=== PATIENT | female | born 1985 | race Caucasian/White ===

== ENCOUNTER 2017-08-01 22:01 | Observation (INO) | payer OTHER ==
[2017-08-02 06:02] VITALS: BP 111/66; PULSE 70; O2SAT 99
--- NOTE | 2017-08-02 08:24 | PCM.SSS ---
History of Present Illness - Chief Complaint Chief Complaint: OB CHECK History of Present Illness: is a 32 year old at 25 wks EGA female who presented to OB last night with complaints of painless vaginal bleeding. She denies intercourse , strenuous activity or any inciting event prior to the bleeding. She has had no vaginal bleeding overnight, no abdominal pain, no nausea, vomiting, diarrhea , no dysuria, no other complaints at this time. - Review of Systems Constitutional: No Fever, No Chills Respiratory: No Cough, No Short Of Breath Cardiac: No Chest Pain, No Edema, No Syncope Abdominal/Gastrointestinal: No Abdominal Pain, No Nausea, No Vomiting, No Diarrhea Genitourinary Symptoms: , Vaginal Bleeding, No Dysuria, No Frequency, No Hematuria, No Vaginal Discharge, No Vaginal Itching Skin: No Rash All Other Systems: Reviewed and Negative Medications & Allergies Home Medications: Home Medication List Vits W-Ca,Fe,FA(<1Mg) [] 1 each PO DAILY 05/04/12 [History Confirmed 12/18/14] Sertraline HCl DAILY 08/01/17 [History] Allergies/Adverse Reactions: Allergies Allergy/AdvReac Type Severity Reaction Status Date / Time amoxicillin Allergy Rash Verified 08/01/17 22:43 - Past Medical History Past Medical History: No Neurological History: No Pertinent History ENT History: No Pertinent History Cardiac History: No Pertinent History Respiratory History: No Pertinent History Endocrine Medical History: No Pertinent History Musculoskelatal History: No Pertinent History GI Medical History: No Pertinent History History: No Pertinent History Pyscho-Social History: Anxiety Reproductive Disorders: No Pertinent History - Female History Expected Date of Delivery: 11/12/17 - Past Surgical History Past Surgical History: Yes Neuro Surgical History: No Pertinent History Cardiac History: No Pertinent History Respiratory Surgery: No Pertinent History GI Surgical History: No Pertinent History Genitourinary Surgical Hx: No Pertinent History Musculskeletal Surgical Hx: No Pertinent History Female Surgical History: No Pertinent History Other Surgical History: IUD removed in 2011 - Social History Smoking Status: Never smoker Exposure to second hand smoke: No Alcohol: None Drug Use: none - Physical Exam Vital Signs: Vital Signs - 24 hr Temp Pulse Resp BP BP Pulse Ox 08/02/17 06:01 97.3 F 70 18 111/66 99 08/01/17 22:01 97.7 F 85 18 120/74 120/74 97 General Appearance: no apparent distress, alert Eye Exam: PERRL/EOMI, eyes nml inspection Respiratory Exam: normal breath sounds, lungs clear, No respiratory distress Cardiovascular Exam: regular rate/rhythm, normal heart sounds, normal peripheral pulses Gastrointestinal/Abdomen Exam: soft, normal bowel sounds, No tenderness, No mass Extremity Exam: normal inspection, normal range of motion, pelvis stable Skin Exam: normal color, warm, dry, No rash Results - Labs Lab/Micro Results: Lab Results-Last 24 Hours 08/01/17 Range/Units 22:30 Urine Opiates Level NEG. (NEGATIVE) Ur Methadone NEG. (NEGATIVE) Urine Barbiturates NEG. (NEGATIVE) Ur Phencyclidine (PCP) NEG. (NEGATIVE) Urine Amphetamine NEG. (NEGATIVE) U Benzodiazepine Level NEG. (NEGATIVE) Urine Cocaine NEG. (NEGATIVE) Urine Marijuana (THC) NEG. (NEGATIVE) - Radiology Impressions Radiology Exams & Impressions: Radiology Procedures Category Date Time Status OB >14 WKS 1st GESTATION [US] Urgent Exams 08/02/17 Taken Assessment/Plan (1) Third trimester bleeding Current Visit: Yes Status: Acute Assessment & Plan: u/s shows normal DARIEL 12.4, plactenta posterior, midline and no previa. nothing abnormal, heart tracing reassuring. will d/c to home and have patient f/u in office in 1 week. advised to return or call with any further bleeding or new problems or concerns. Code(s): O46.93 - ANTEPARTUM HEMORRHAGE, UNSPECIFIED, THIRD TRIMESTER Hospital Summary - Vitals & Intake/Output Vital Signs: Vital Signs Temperature 97.3 F 08/02/17 06:01 Pulse Rate 70 08/02/17 06:01 Respiratory Rate 18 08/02/17 06:01 Blood Pressure 111/66 08/02/17 06:01 O2 Sat by Pulse Oximetry 99 08/02/17 06:01 Intake & Output: Intake & Output 07/30/17 07/31/17 08/01/17 08/02/17 11:59 11:59 11:59 11:59 Weight 99.79 kg - Lab Lab Results-Last 24 Hrs: Lab Results-Last 24 Hours 08/01/17 Range/Units 22:30 Urine Opiates Level NEG. (NEGATIVE) Ur Methadone NEG. (NEGATIVE) Urine Barbiturates NEG. (NEGATIVE) Ur Phencyclidine (PCP) NEG. (NEGATIVE) Urine Amphetamine NEG. (NEGATIVE) U Benzodiazepine Level NEG. (NEGATIVE) Urine Cocaine NEG. (NEGATIVE) Urine Marijuana (THC) NEG. (NEGATIVE) - Radiology Exams Ordered Rad Exams-Entire Visit: Radiology Procedures Category Date Time Status OB >14 WKS 1st GESTATION [US] Urgent Exams 08/02/17 Taken - Discharge Disposition: Home, Self-Care Condition: Stable Prescriptions: No Action Vits W-Ca,Fe,FA(<1Mg) [] 1 each PO DAILY Sertraline HCl DAILY Additional Instructions: pelvic rest for the next week, no vigorous or strenuous activity. return to OB for any further vaginal bleeding or call the office if it occurs during normal business hours. Follow up with: CADY HOLLIS MD [Primary Care Provider] - 08/09/17 1:30 pm
--- NOTE | 2017-08-02 08:45 | XRAY ---
Indication: Vaginal bleeding. 2-dimensional OB ultrasound performed. Comparison: June 14, 2017. Again there is a single viable intrauterine in cephalic presentation. Normal four-chamber heart with heart rate 132 bpm. Normal three-vessel cord and cord insertion. Visualized head, spine, stomach, kidneys, and bladder appear unremarkable. Placenta is posterior without abruption/previa. BPD measures 6.31 cm corresponding to 25 weeks 4 days. HC measures 23.37 cm corresponding to 25 weeks 3 days. AC measures 20.88 cm corresponding to 25 weeks 3 days. FL measures 4.92 cm corresponding to 26 weeks 4 days. DARIEL is 12.4 cm. Impression: Again single viable intrauterine with mean gestational age 25 weeks 5 days. Normal progression of . No new/acute findings.
== END 2017-08-02 08:33 | disposition home or self-care (01) ==
LOC: OB 22:01
PROVIDERS: ADMIT Family Medicine; ATTEND Family Medicine
DX: Z34.83 Encounter for supervision of other normal pregnancy, third trimester (principal)
CPT/HCPCS: 76805; 80307; G0378

== ENCOUNTER 2017-11-08 01:49 | Inpatient (IN) | payer OTHER ==
[2017-11-08] MEDS ORDERED: Lactated Ringers 1,000 ML IV ONE (01:52)
[2017-11-08] MEDS ORDERED: Zofran 4 MG/2 ML VIAL IV PRN (02:37)
[2017-11-08] MEDS ORDERED: Adacel Vial IM ONE (02:41)
[2017-11-08] MEDS ORDERED: Ambien 10 MG PO PRN (02:41)
[2017-11-08] MEDS ORDERED: Anucort-HC SUPPOSITORY PR PRN (02:41)
[2017-11-08] MEDS ORDERED: Mylicon 80MG PO PRN (02:41)
[2017-11-08] MEDS ORDERED: Dulcolax 10 MG SUPP PR PRN (02:41)
[2017-11-08] MEDS ORDERED: Dermoplast Spray TP PRN (02:41)
[2017-11-08] MEDS ORDERED: TUCKS TP PRN (02:41)
[2017-11-08] MEDS ORDERED: LANSINOH 40 GM TOP PRN (02:41)
[2017-11-08] MEDS ORDERED: CORTISONE 1% CREAM TP PRN (02:41)
[2017-11-08] MEDS ORDERED: NORCO 5/325 MG PO PRN (02:41)
[2017-11-08] MEDS: MOTRIN 400 MG PO PRN ×3 (02:59→18:44)
[2017-11-08] MEDS ORDERED: PITOCIN 30 UNITS/ LR 500 ML 500 ML IV SCH (03:00)
[2017-11-08] MEDS ORDERED: Lactated Ringers 1,000 ML IV SCH (03:00)
[2017-11-08 03:14] LABS: BASOPHIL % 0.1 % (0.0-0.4); Basophil (Absolute #) 0.01 (0-0.4); Eosinophil % 0.5 % (0.00-5.0); Eosinophil (Absolute #) 0.04 (0-0.5); Granulocyte Absolute (ANC) 5.82 (1.4-6.9); Granulocytes % 76.3 % (36.0-66.0); Hematocrit 36.1 % (35-47); Hemoglobin 11.4 gm/dl (12.0-16.0); Lymphocyte (Absolute #) 1.27 (1.0-4.6); Lymphocytes % 16.6 % (24.0-44.0); Mean Cell Volume 92.1 fl (78-100); Mean Corpuscular Hgb Concent. 31.6 g/dl (32-36); Mean Platelet Volume 10.7 fl (6-9.5); Monocytes % 6.5 % (0.0-12.0); Platelet Count 235 K/mm3 (150-450); Red Blood Count 3.92 M/mm3 (4.1-5.4); Red Cell Distribution Width 13.5 % (11.5-14.0); White Blood Count 7.6 K/mm3 (4.0-10.5)
[2017-11-08 04:04] LABS: Amphetamine,Urine NEG. (NEGATIVE); Barbiturate,Urine NEG. (NEGATIVE); Benzodiazepine,Urine NEG. (NEGATIVE); Cocaine,Urine NEG. (NEGATIVE); Methadone,Urine NEG. (NEGATIVE); Opiate,Urine NEG. (NEGATIVE); PCP,Urine NEG. (NEGATIVE); THC,Urine NEG. (NEGATIVE)
[2017-11-08] MEDS: Colace 100 MG PO SCH ×2 (09:51→22:20)
[2017-11-08] MEDS: FERREX 150 PO SCH (09:51)
[2017-11-08] MEDS: TYLENOL EXTRA STRENGTH 500 MG PO PRN ×2 (12:23→22:20)
[2017-11-09] MEDS: MOTRIN 400 MG PO PRN ×3 (01:48→20:06)
[2017-11-09 05:54] LABS: BASOPHIL % 0.2 % (0.0-0.4); Basophil (Absolute #) 0.01 (0-0.4); Eosinophil % 1.5 % (0.00-5.0); Eosinophil (Absolute #) 0.09 (0-0.5); Granulocyte Absolute (ANC) 2.91 (1.4-6.9); Granulocytes % 50.1 % (36.0-66.0); Hematocrit 32.9 % (35-47); Hemoglobin 10.3 gm/dl (12.0-16.0); Lymphocyte (Absolute #) 2.24 (1.0-4.6); Lymphocytes % 38.6 % (24.0-44.0); Mean Cell Volume 93.2 fl (78-100); Mean Corpuscular Hgb Concent. 31.3 g/dl (32-36); Mean Platelet Volume 10.7 fl (6-9.5); Monocyte (Absolute #) 0.56 (0.0-1.3); Monocytes % 9.6 % (0.0-12.0); Platelet Count 223 K/mm3 (150-450); Red Blood Count 3.53 M/mm3 (4.1-5.4); Red Cell Distribution Width 13.5 % (11.5-14.0); White Blood Count 5.8 K/mm3 (4.0-10.5)
[2017-11-09 06:00] LABS: Mean Corpuscular Hemoglobin 29.1 pg (26-32)
[2017-11-09] MEDS: TYLENOL EXTRA STRENGTH 500 MG PO PRN (12:49)
[2017-11-09] MEDS: Colace 100 MG PO SCH ×2 (12:50→22:17)
[2017-11-09] MEDS: FERREX 150 PO SCH (12:50)
[2017-11-10] MEDS: MOTRIN 400 MG PO PRN (05:25)
--- NOTE | 2017-11-10 08:53 | PCM.DS ---
Discharge Summary Date of Admission: 11/08/17 01:49 Admitting Physician: CADY HOLLIS Primary Care Provider: CADY HOLLIS Allergies Allergies amoxicillin Allergy (Verified 11/08/17 05:13) [facility] Hospital Summary - Hospital Course Hospital Course: 32yo arrived and delivered a female precipitously with no complications. she is her , mild lochia, taking regular po and has no complaints. - Vitals & Intake/Output Vital Signs: Vital Signs Temperature 97.7 F 11/10/17 02:00 Pulse Rate 68 11/10/17 02:00 Respiratory Rate 18 11/10/17 02:00 Blood Pressure 142/77 11/10/17 02:00 O2 Sat by Pulse Oximetry Intake & Output: Intake & Output 11/07/17 11/08/17 11/09/17 11/10/17 11:59 11:59 11:59 11:59 Intake Total 1550 1240 Balance 1550 1240 Weight 108.862 kg - Lab Result Diagrams: 11/09/17 05:45 Discharge Exam General Appearance: no apparent distress, alert Respiratory Exam: normal breath sounds, lungs clear, No respiratory distress Cardiovascular Exam: regular rate/rhythm, normal heart sounds Gastrointestinal/Abdomen Exam: soft, No tenderness, No mass Extremity Exam: normal inspection, normal range of motion Final Diagnosis/Problem List - Final Discharge Diagnosis/Problem (1) Vaginal delivery Current Visit: No Status: Acute (2) () Current Visit: Yes Status: Acute - Discharge Disposition: Home, Self-Care Condition: Stable Prescriptions: New Breast Pump 1 each UD #1 each Ibuprofen 600 mg PO TID PRN #30 tablet Continue Vits W-Ca,Fe,FA(<1Mg) [] 1 each PO DAILY Sertraline HCl 100 tab PO DAILY Follow up with: CADY HOLLIS MD [Primary Care Provider] - 1 Week
[2017-11-10 09:26] VITALS: BP 126/88; PULSE 86
== END 2017-11-10 10:20 | disposition home or self-care (01) | DRG 775 ==
LOC: OB 01:49 → OBSVTOIN 01:49 → MED SURG 11-09 21:33
PROVIDERS: ADMIT Family Medicine; ATTEND Family Medicine
PROC: 10E0XZZ Delivery of Products of Conception, External Approach (ICD-10-PCS; principal; 2017-11-08)
DX: O80 Encounter for full-term uncomplicated delivery (principal); Z3A.39 39 weeks gestation of pregnancy; Z37.0 Single live birth
CPT/HCPCS: 36415; 80307; 85025; 90715; G0378; J2590; A9270-GY

== ENCOUNTER 2024-05-29 11:59 | Emergency (ER) | payer OTHER ==
--- NOTE | 2024-05-29 12:03 | ERPHSYRPT ---
- History of Present Illness Time Seen by Provider: 05/29/24 12:03 Source: patient Exam Limitations: no limitations Physician History: This is a 39-year-old white female patient of Dr. Hollis who was brought into the emergency department by her spouse because of rapid heart rate and dizziness. 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 Patient denies illicit drug use. Patient denies methamphetamine/amphetamine based medications or illicit drug use. Patient has a history of hypothyroidism and anxiety. Patient herself, has no documented history of coronary artery disease. Patient does feel mild central, substernal pressure without radiation. Patient is not short of breath. She has not had any nausea vomiting or diarrhea symptoms. Timing/Duration: today, hour(s) (1 hour prior to arrival) Severity: moderate Character of Deficits: none Deficits: no difficulties Baseline/Normal Cognition: alert oriented x 3 Current Cognition: alert oriented x 3 Baseline Gait: walks w/o assistance Associated Symptoms: other (Dizziness and rapid palpitations) Allergies/Adverse Reactions: amoxicillin Allergy (Verified 05/29/24 12:07) Rash Home Medications: Sertraline HCl 100 tab PO DAILY 08/01/17 [History] Levothyroxine Sodium [Levothyroxine] 50 mcg PO DAILY 05/29/24 [History] Travel Risk - International Travel Have you traveled outside of the country in past 3 weeks: No - Emerging Infectious Disease Are you exhibiting symptoms associated with any current EIDs: No - Review of Systems Constitutional: No Symptoms Eyes: No Symptoms Ears, Nose, & Throat: No Symptoms Respiratory: No Symptoms Cardiac: Palpitations, Other (Mild central substernal nonradiating chest pressure) Abdominal/Gastrointestinal: No Symptoms Genitourinary Symptoms: No Symptoms Musculoskeletal: No Symptoms Skin: No Symptoms Neurological: Dizziness Psychological: No Symptoms Endocrine: No Symptoms Hematologic/Lymphatic: No Symptoms Immunological/Allergic: No Symptoms All Other Systems: Reviewed and Negative - Past Medical History Pertinent Past Medical History: No Neurological History: No Pertinent History ENT History: No Pertinent History Cardiac History: No Pertinent History Respiratory History: No Pertinent History Endocrine Medical History: No Pertinent History Musculoskeletal History: No Pertinent History GI Medical History: No Pertinent History History: No Pertinent History Psycho-Social History: Anxiety Female Reproductive Disorders: No Pertinent History - Past Surgical History Past Surgical History: Yes Neuro Surgical History: No Pertinent History Cardiac: No Pertinent History Respiratory: No Pertinent History Gastrointestinal: No Pertinent History Genitourinary: No Pertinent History Musculoskeletal: No Pertinent History Female Surgical History: No Pertinent History Other Surgical History: IUD removed in 2011 - Social History Smoking Status: Never smoker Exposure to second hand smoke: No Drug Use: none - Nursing Vital Signs Nursing Vital Signs: Initial Vital Signs Temperature 97.0 F 05/29/24 12:12 Pulse Rate 198 H 05/29/24 12:12 Respiratory Rate 20 05/29/24 12:12 Blood Pressure 162/99 05/29/24 12:12 O2 Sat by Pulse Oximetry 100 05/29/24 12:12 Pain Scale Pain Intensity 0 - Belkys Coma Scale Best Eye Response (Ransom): (4) open spontaneously Best Verbal Response (Belkys): (5) oriented Best Motor Response (Belkys): (6) obeys commands Belkys Total: 15 - Physical Exam General Appearance: mild distress, alert, anxiety, obese Eye Exam: bilateral eye: normal inspection, PERRL, EOMI Ears, Nose, Throat Exam: normal ENT inspection, pharynx normal, moist mucous membranes Neck Exam: normal inspection, non-tender, supple, full range of motion Respiratory: normal breath sounds, lungs clear, airway intact, No chest tenderness, No respiratory distress Cardiovascular: tachycardia Gastrointestinal: soft, normal bowel sounds, No tenderness Pelvic Exam: not done Rectal Exam: not done Back Exam: normal inspection, normal range of motion, No CVA tenderness, No vertebral tenderness Extremity Exam: normal inspection, normal range of motion, pelvis stable Mental Status: alert, 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 QTc 464. No comparison twelve-lead EKG) Ordered Tests: Active Orders 24 hr Category Date Time Status [employer] Employee STAT Care 05/29/24 12:26 Active EKG-ER Only STAT Care 05/29/24 12:25 Active IV Insertion STAT Care 05/29/24 12:25 Active Pulse Oximetry (ED) STAT Care 05/29/24 12:25 Active Re-Check Vital Signs STAT Care 05/29/24 12:25 Active CBC W DIFF Stat Lab 05/29/24 12:35 Completed CMP Stat Lab 05/29/24 12:35 Completed D-DIMER QUANTITATIVE Stat Lab 05/29/24 12:35 Completed MAGNESIUM Stat Lab 05/29/24 12:35 Completed NT PRO BNPII Stat Lab 05/29/24 12:35 Completed PROTIME WITH INR Stat Lab 05/29/24 12:35 Completed TROPONIN Q4H Lab 05/29/24 12:35 Completed TROPONIN Q4H Lab 05/29/24 16:30 Ordered TROPONIN Q4H Lab 05/29/24 20:30 Ordered TSH, 3RD Generation Stat Lab 05/29/24 12:35 Completed UA W/RFX UR CULTURE Stat Lab 05/29/24 12:54 Completed Urine Triage Profile Stat Lab 05/29/24 12:54 Completed Holter Monitor ONCE RT 05/29/24 13:37 Active Medication Summary Discontinued Medications Generic Name Dose Route Start Last Admin Trade Name Freq PRN Reason Stop Dose Admin Adenosine Confirm 05/29/24 12:09 Adenosine 6 Mg/2 Ml Vial Administered 05/29/24 12:10 Dose 18 mg IV .STK-MED ONE Adenosine 6 mg 05/29/24 12:27 05/29/24 12:42 Adenosine 6 Mg/2 Ml Vial IV 05/29/24 12:28 Not Given STAT ONE Lorazepam 1 mg 05/29/24 12:29 05/29/24 12:38 Lorazepam 2 Mg/1 Ml 2 Mg Vial IV 05/29/24 12:30 1 mg STAT ONE Administration Lorazepam Confirm 05/29/24 12:35 Lorazepam 2 Mg/1 Ml 2 Mg Vial Administered 05/29/24 12:36 Dose 2 mg .ROUTE .STK-MED ONE Lab/Rad Data: Laboratory Result Diagrams 05/29/24 12:35 05/29/24 12:35 Laboratory Results 05/29/24 05/29/24 05/29/24 Range/Units 12:54 12:54 12:35 WBC (3.98-10.04) x10^3/uL RBC (3.93-5.22) x10^6/uL Hgb (11.2-15.7) g/dL Hct (34.1-44.9) % MCV (79.4-94.8) fL MCH (25.6-32.2) pg MCHC (32.2-35.5) g/dL RDW (11.7-14.4) % Plt Count (182-369) x10^3/uL MPV (9.4-12.3) fL Gran % (34.0-71.1) % Immature Gran % (Auto) (0.001-0.429) % Nucleat RBC Rel Count (0.00-0.2) % Eos # (Auto) (0.04-0.36) x10^3/uL Immature Gran # (Auto) (0.001-0.031) x10^3u/L Absolute Lymphs (auto) (1.18-3.74) x10^3/uL Absolute Monos (auto) (0.24-0.86) x10^3/uL Absolute Nucleated RBC (0.00-0.012) x10^3u/L Lymphocytes % (19.3-51.7) % Monocytes % (4.7-12.5) % Eosinophils % (0.7-5.8) % Basophils % (0.1-1.2) % Absolute Granulocytes (1.56-6.13) x10^3/uL Basophils # (0.01-0.08) x10^3/uL PT (9.4-12.5) SECONDS INR (0.8-3.0) D-Dimer (0.0-0.50) mg/L Sodium (135-145) mmol/L Potassium (3.5-5.1) mmol/L Chloride (98-107) mmol/L Carbon Dioxide (22-30) mmol/L Anion Gap (5-15) MEQ/L BUN (7-17) mg/dL Creatinine (0.52-1.04) mg/dL Estimated GFR ML/MIN Glucose (74-106) mg/dL Calcium (8.4-10.2) mg/dL Magnesium (1.6-2.3) mg/dL Total Bilirubin (0.2-1.3) mg/dL AST (14-36) U/L ALT (0-35) U/L Alkaline Phosphatase (38-126) U/L Troponin I < 0.012 (0.000-0.033) ng/mL NT-Pro-B Natriuret Pep < 20.0 (<300) pg/mL Serum Total Protein (6.3-8.2) g/dL Albumin (3.5-5.0) g/dL Free T4 (0.78-2.19) ng/dL TSH 3rd Generation (0.470-4.680) mIU/L Urine Color Yellow (Yellow) Urine Appearance Clear (Clear) Urine pH 7.5 (4.6-8.0) Ur Specific Lucas <=1.005 (1.005-1.030) Urine Protein Trace A (Negative) Urine Glucose (UA) Negative (Negative) mg/dL Urine Ketones Negative (Negative) Urine Blood Negative (Negative) Urine Nitrite Negative (Negative) Urine Bilirubin Negative (Negative) Urine Urobilinogen 0.2 (0.2) mg/dL Ur Leukocyte Esterase Negative (Negative) U Hyaline Cast (Auto) NONE SEEN (0-2) /LPF Urine Microscopic RBC 0-2 (0-5) /HPF Urine Microscopic WBC 0-2 (0-5) /HPF Ur Epithelial Cells Rare (None Seen) /HPF Urine Bacteria None Seen (None Seen) /HPF Urine Culture Reflexed NO (NO) Urine Opiates Level NEGATIVE (NEGATIVE) Ur Methadone NEGATIVE (NEGATIVE) Urine Barbiturates NEGATIVE (NEGATIVE) Ur Phencyclidine (PCP) NEGATIVE (NEGATIVE) Urine Amphetamine NEGATIVE (NEGATIVE) U Benzodiazepine Level NEGATIVE (NEGATIVE) Urine Cocaine NEGATIVE (NEGATIVE) Urine Marijuana (THC) NEGATIVE (NEGATIVE) 05/29/24 05/29/24 05/29/24 Range/Units 12:35 12:35 12:35 WBC (3.98-10.04) x10^3/uL RBC (3.93-5.22) x10^6/uL Hgb (11.2-15.7) g/dL Hct (34.1-44.9) % MCV (79.4-94.8) fL MCH (25.6-32.2) pg MCHC (32.2-35.5) g/dL RDW (11.7-14.4) % Plt Count (182-369) x10^3/uL MPV (9.4-12.3) fL Gran % (34.0-71.1) % Immature Gran % (Auto) (0.001-0.429) % Nucleat RBC Rel Count (0.00-0.2) % Eos # (Auto) (0.04-0.36) x10^3/uL Immature Gran # (Auto) (0.001-0.031) x10^3u/L Absolute Lymphs (auto) (1.18-3.74) x10^3/uL Absolute Monos (auto) (0.24-0.86) x10^3/uL Absolute Nucleated RBC (0.00-0.012) x10^3u/L Lymphocytes % (19.3-51.7) % Monocytes % (4.7-12.5) % Eosinophils % (0.7-5.8) % Basophils % (0.1-1.2) % Absolute Granulocytes (1.56-6.13) x10^3/uL Basophils # (0.01-0.08) x10^3/uL PT 10.9 (9.4-12.5) SECONDS INR 1.00 (0.8-3.0) D-Dimer < 0.19 (0.0-0.50) mg/L Sodium 138 (135-145) mmol/L Potassium 4.2 (3.5-5.1) mmol/L Chloride 105 (98-107) mmol/L Carbon Dioxide 21 L (22-30) mmol/L Anion Gap 15.5 H (5-15) MEQ/L BUN 11 (7-17) mg/dL Creatinine 0.75 (0.52-1.04) mg/dL Estimated GFR 103.2 ML/MIN Glucose 108 H (74-106) mg/dL Calcium 8.9 (8.4-10.2) mg/dL Magnesium 1.9 (1.6-2.3) mg/dL Total Bilirubin 0.70 (0.2-1.3) mg/dL AST 25 (14-36) U/L ALT 25 (0-35) U/L Alkaline Phosphatase 77 (38-126) U/L Troponin I (0.000-0.033) ng/mL NT-Pro-B Natriuret Pep (<300) pg/mL Serum Total Protein 7.7 (6.3-8.2) g/dL Albumin 4.4 (3.5-5.0) g/dL Free T4 1.00 (0.78-2.19) ng/dL TSH 3rd Generation 5.648 H (0.470-4.680) mIU/L Urine Color (Yellow) Urine Appearance (Clear) Urine pH (4.6-8.0) Ur Specific Lucas (1.005-1.030) Urine Protein (Negative) Urine Glucose (UA) (Negative) mg/dL Urine Ketones (Negative) Urine Blood (Negative) Urine Nitrite (Negative) Urine Bilirubin (Negative) Urine Urobilinogen (0.2) mg/dL Ur Leukocyte Esterase (Negative) U Hyaline Cast (Auto) (0-2) /LPF Urine Microscopic RBC (0-5) /HPF Urine Microscopic WBC (0-5) /HPF Ur Epithelial Cells (None Seen) /HPF Urine Bacteria (None Seen) /HPF Urine Culture Reflexed (NO) Urine Opiates Level (NEGATIVE) Ur Methadone (NEGATIVE) Urine Barbiturates (NEGATIVE) Ur Phencyclidine (PCP) (NEGATIVE) Urine Amphetamine (NEGATIVE) U Benzodiazepine Level (NEGATIVE) Urine Cocaine (NEGATIVE) Urine Marijuana (THC) (NEGATIVE) 05/29/24 Range/Units 12:35 WBC 5.2 (3.98-10.04) x10^3/uL RBC 4.48 (3.93-5.22) x10^6/uL Hgb 13.8 (11.2-15.7) g/dL Hct 41.3 (34.1-44.9) % MCV 92.2 (79.4-94.8) fL MCH 30.8 (25.6-32.2) pg MCHC 33.4 (32.2-35.5) g/dL RDW 12.7 (11.7-14.4) % Plt Count 231 (182-369) x10^3/uL MPV 9.5 (9.4-12.3) fL Gran % 52.6 (34.0-71.1) % Immature Gran % (Auto) 0.4 (0.001-0.429) % Nucleat RBC Rel Count 0.0 (0.00-0.2) % Eos # (Auto) 0.09 (0.04-0.36) x10^3/uL Immature Gran # (Auto) 0.02 (0.001-0.031) x10^3u/L Absolute Lymphs (auto) 2.00 (1.18-3.74) x10^3/uL Absolute Monos (auto) 0.34 (0.24-0.86) x10^3/uL Absolute Nucleated RBC 0.00 (0.00-0.012) x10^3u/L Lymphocytes % 38.2 (19.3-51.7) % Monocytes % 6.5 (4.7-12.5) % Eosinophils % 1.7 (0.7-5.8) % Basophils % 0.6 (0.1-1.2) % Absolute Granulocytes 2.75 (1.56-6.13) x10^3/uL Basophils # 0.03 (0.01-0.08) x10^3/uL PT (9.4-12.5) SECONDS INR (0.8-3.0) D-Dimer (0.0-0.50) mg/L Sodium (135-145) mmol/L Potassium (3.5-5.1) mmol/L Chloride (98-107) mmol/L Carbon Dioxide (22-30) mmol/L Anion Gap (5-15) MEQ/L BUN (7-17) mg/dL Creatinine (0.52-1.04) mg/dL Estimated GFR ML/MIN Glucose (74-106) mg/dL Calcium (8.4-10.2) mg/dL Magnesium (1.6-2.3) mg/dL Total Bilirubin (0.2-1.3) mg/dL AST (14-36) U/L ALT (0-35) U/L Alkaline Phosphatase (38-126) U/L Troponin I (0.000-0.033) ng/mL NT-Pro-B Natriuret Pep (<300) pg/mL Serum Total Protein (6.3-8.2) g/dL Albumin (3.5-5.0) g/dL Free T4 (0.78-2.19) ng/dL TSH 3rd Generation (0.470-4.680) mIU/L Urine Color (Yellow) Urine Appearance (Clear) Urine pH (4.6-8.0) Ur Specific Lucas (1.005-1.030) Urine Protein (Negative) Urine Glucose (UA) (Negative) mg/dL Urine Ketones (Negative) Urine Blood (Negative) Urine Nitrite (Negative) Urine Bilirubin (Negative) Urine Urobilinogen (0.2) mg/dL Ur Leukocyte Esterase (Negative) U Hyaline Cast (Auto) (0-2) /LPF Urine Microscopic RBC (0-5) /HPF Urine Microscopic WBC (0-5) /HPF Ur Epithelial Cells (None Seen) /HPF Urine Bacteria (None Seen) /HPF Urine Culture Reflexed (NO) Urine Opiates Level (NEGATIVE) Ur Methadone (NEGATIVE) Urine Barbiturates (NEGATIVE) Ur Phencyclidine (PCP) (NEGATIVE) Urine Amphetamine (NEGATIVE) U Benzodiazepine Level (NEGATIVE) Urine Cocaine (NEGATIVE) Urine Marijuana (THC) (NEGATIVE) - Progress Progress: improved, re-examined Progress Note: 05/29/24 12:31 My medical decision making and the assignment of moderate to high complexity of this patient's medical issue today is based on review of the patient's past medical history, review of the patient's medication list, reviewed patient drug allergy list, history present illness and physical findings on examination. The workup in this patient includes twelve-lead EKG, intravenous line placement, CBC, CMP, magnesium level, troponin level, urinalysis, urine drug screen, free T4 level, TSH level. Patient will be given adenosine 6 mg intravenously. If this medication amount is ineffective we will increase to 12 mg intravenously. Differential diagnosis includes but not limited to SVT, electrolyte abnormality, arrhythmia abnormality, myocardial infarction, pulmonary embolus, congestive heart failure, 05/29/24 12:41 I obtained a repeat twelve-lead EKG on 05/29/2024 at 1220 after patient had received 6 mg intravenously adenosine followed by 12 mg intravenous adenosine. I interpreted this twelve-lead EKG. Shows a heart rate of 129 patient is now sinus tachycardia. The QTc is 445. 05/29/24 13:40 I interpreted the patient's laboratory data results. Based on the patient's laboratory data results, there are no acute emergent medical issues. We will discharge the patient home and make arranges for close follow-up with her primary care provider. Will also place a Holter monitor on her as well. Counseled pt/family regarding: lab results, diagnosis, need for follow-up Medical Desision Making - Independent Historian Additional History obtained from: Spouse - Diagnostic Testing Diagnostic test were ordered, analyzed, and reviewed by me: Yes - Risk of complications Minimal Risk: Minimal risk of morbidity - Departure Departure Disposition: Home Clinical Impression: SVT (supraventricular tachycardia) Condition: Stable Critical Care Time: Yes Critical Care Time(excluding separately billable procedures): Critical 30-74 mins (40 minutes) Referrals: CADY HOLLIS MD [Primary Care Provider] - Follow up/PCP as directed
[2024-05-29] MEDS ORDERED: Adenocard IV 6 MG/2 ML IV ONE (12:09)
[2024-05-29 12:13] VITALS: TEMP 97
[2024-05-29] MEDS ORDERED: Ativan 2 MG/1 ML VIAL ONE (12:35)
[2024-05-29] MEDS: Ativan 2 MG/1 ML VIAL IV ONE (12:38)
[2024-05-29 12:41] LABS: Absolute Neutrophil Ct (ANC) 2.75 x10^3/uL (1.56-6.13); BASOPHIL % 0.6 % (0.1-1.2); Basophil (Absolute #) 0.03 x10^3/uL (0.01-0.08); Eosinophil % 1.7 % (0.7-5.8); Eosinophil (Absolute #) 0.09 x10^3/uL (0.04-0.36); Hematocrit 41.3 % (34.1-44.9); Hemoglobin 13.8 g/dL (11.2-15.7); IMMATURE GRAN # 0.02 x10^3u/L (0.001-0.031); IMMATURE GRAN % 0.4 % (0.001-0.429); Lymphocytes % 38.2 % (19.3-51.7); Mean Cell Volume 92.2 fL (79.4-94.8); Mean Corpuscular Hemoglobin 30.8 pg (25.6-32.2); Mean Corpuscular Hgb Concent. 33.4 g/dL (32.2-35.5); Mean Platelet Volume 9.5 fL (9.4-12.3); Monocyte (Absolute #) 0.34 x10^3/uL (0.24-0.86); Monocytes % 6.5 % (4.7-12.5); Neutrophil % 52.6 % (34.0-71.1); Platelet Count 231 x10^3/uL (182-369); Red Blood Count 4.48 x10^6/uL (3.93-5.22); Red Cell Distribution Width 12.7 % (11.7-14.4); White Blood Count 5.2 x10^3/uL (3.98-10.04)
[2024-05-29] MEDS: Adenocard IV 6 MG/2 ML IV ONE (12:42)
[2024-05-29 12:58] LABS: D-DIMER QUANTITATIVE < 0.19 mg/L (0.0-0.50); PROTIME 10.9 SECONDS (9.4-12.5)
[2024-05-29 13:04] LABS: Appearance Clear (Clear); Bacteria None Seen /HPF (None Seen); Bilirubin Negative (Negative); Blood Negative (Negative); Epithelial Cells Rare /HPF (None Seen); Glucose, Urine Negative (Negative); Hyaline Casts NONE SEEN /LPF (0-2); Ketones Negative (Negative); Leukocyte Esterase Negative (Negative); Nitrite Negative (Negative); Ph 7.5 (4.6-8.0); Protein,Urine Dip Trace (Negative); RBC 0-2 /HPF (0-5); Specific Gravity <=1.005 (1.005-1.030); Urobilinogen 0.2 mg/dL (0.2); WBC 0-2 /HPF (0-5)
[2024-05-29 13:07] LABS: ADD URINE CULTURE? NO (NO)
[2024-05-29 13:20] LABS: Amphetamine,Urine NEGATIVE (NEGATIVE); Barbiturate,Urine NEGATIVE (NEGATIVE); Benzodiazepine,Urine NEGATIVE (NEGATIVE); Cocaine,Urine NEGATIVE (NEGATIVE); Methadone,Urine NEGATIVE (NEGATIVE); Opiate,Urine NEGATIVE (NEGATIVE); PCP,Urine NEGATIVE (NEGATIVE); THC,Urine NEGATIVE (NEGATIVE)
[2024-05-29 13:21] LABS: NT PRO BNPII < 20.0 pg/mL (<300); TROPONIN < 0.012 ng/mL (0.000-0.033)
[2024-05-29 13:28] LABS: ALBUMIN 4.4 g/dL (3.5-5.0); ANION GAP 15.5 MEQ/L (5-15); BILIRUBIN,TOTAL 0.7 mg/dL (0.2-1.3); Calcium 8.9 mg/dL (8.4-10.2); Creatinine 1 0.75 mg/dL (0.52-1.04); EST GLOMERULAR FILTRATION RATE 103.2 ML/MIN; MAGNESIUM 1.9 mg/dL (1.6-2.3); Potassium 4.2 mmol/L (3.5-5.1); TSH, 3RD Generation 5.648 mIU/L (0.470-4.680); Total Protein 7.7 g/dL (6.3-8.2)
[2024-05-29 14:06] VITALS: BP 121/94; PULSE 101; RESP 16; O2SAT 96
== END 2024-05-29 14:06 | disposition home or self-care (01) ==
LOC: ED 11:59
DX: I47.10 Supraventricular tachycardia, unspecified (principal); R42 Dizziness and giddiness; R07.9 Chest pain, unspecified; Z79.899 Other long term (current) drug therapy
CPT/HCPCS: 36000; 36415; 80053; 80307; 81001; 83735; 83880; 84439; 84443; 84484; 85025; 85379; 85610; 93005; 93041; 93225; 94760; 96374; 99284; 99291; J0153; J2060